=== PATIENT | female | born 2000 | race Caucasian/White ===

== ENCOUNTER 2019-08-22 02:23 | Inpatient (IN) ==
[~2019-08-22 02:23] MED LIST: Famotidine 20 MG/2 ML VIAL IVP PRN; Lidocaine 1% 20 ML MDV INFILT PRN; Metoclopramide 10 MG/2 ML VIAL IVP PRN; Naloxone 0.4 MG/ML INJ IVP PRN; Ondansetron 4 MG/2 ML VIAL IVP PRN; Ringers Solution, Lactated 1,000 ML IVC SCH
[2019-08-22 02:33] LABS: Basophils % 0.2 %; Eosinophils # 0.2 K/mcL (0.0-0.6); Eosinophils % 1.3 %; Hematocrit 36.7 % (35.3-44.9); Hemoglobin 12.5 g/dL (11.5-15.4); Immature Granulocytes % 1.1 % (0-4); Lymphocytes % 11.9 %; Mean Corpuscular HGB Conc 34.1 g/dL (31.6-35.5); Mean Corpuscular Hemoglobin 30.1 pg (28.0-33.3); Mean Corpuscular Volume 88.4 fL (83.0-100.0); Mean Platelet Volume 9.9 fL (9.4-12.4); Monocytes # 1.3 K/mcL (0.0-1.3); Monocytes % 7.4 %; Neutrophils # 13.4 K/mcL (1.6-8.9); Platelet Count 264 K/mcL (140-400); Red Blood Count 4.15 M/mcL (3.82-4.97); Red Cell Distribution Width 16.4 % (11.5-14.5); Segmented Neutrophils % 78.1 %; White Blood Count 17.1 K/mcL (4.3-11.1)
[2019-08-22] MEDS ORDERED: *HR* FentaNYL (PF) 100 MCG/2 ML VIAL EP ONE (02:36)
[2019-08-22] MEDS ORDERED: Ropivacaine/PF 0.2% 20 ML VIAL EP ONE (02:36)
[2019-08-22] MEDS ORDERED: EPHEDrine 50 MG/ML VIAL IVP PRN (02:36)
[2019-08-22] MEDS ORDERED: *HR* FentaNYL (PF) 100 MCG/2 ML VIAL ONE (02:40)
[2019-08-22] MEDS ORDERED: Ropivacaine/PF 0.2% 20 ML VIAL ONE (02:40)
[2019-08-22 02:43] LABS: Amphetamine Screen,Urine Negative ng/mL (Cutoff=1000); Barbiturate Screen,Urine Negative ng/mL (Cutoff=200); Benzodiazepines Screen,Urine Negative ng/mL (Cutoff=200); Cannabinoid Screen,Urine Negative ng/mL (Cutoff = 50); Cocaine Screen,Urine Negative ng/mL (Cutoff= 300); Opiate Screen,Urine Negative ng/mL (Cutoff=300); Phencyclidine Screen,Urine Negative ng/mL (Cutoff=25)
[2019-08-22] MEDS: Epidural Premix (fent/bupiv) 110 ML EP SCH ×2 (03:03→10:04)
[2019-08-22] MEDS ORDERED: Oxytocin 20 units/ LR 1000 mL 20 UNIT/1,000 ML BAG IVC SCH ×2 (08:30→16:34)
[2019-08-22] MEDS ORDERED: Rho Immune Globulin 1,500 UNIT SYRINGE IM PRN (16:34)
[2019-08-22] MEDS ORDERED: Sennosides 8.6 MG TABLET PO PRN (16:34)
[2019-08-22] MEDS ORDERED: Lanolin 7 G OINT...G. TP PRN (16:34)
[2019-08-22] MEDS ORDERED: Acetaminophen 325 MG TABLET PO PRN (16:34)
[2019-08-22] MEDS ORDERED: Benzocaine/Menthol 56 GM AEROSOL SPRAY TP PRN (16:34)
[2019-08-22] MEDS: Ibuprofen 600 MG TABLET PO PRN (21:09)
[2019-08-23 06:40] LABS: Basophils % 0.2 %; Eosinophils # 0.2 K/mcL (0.0-0.6); Eosinophils % 1.6 %; Hematocrit 32.7 % (35.3-44.9); Immature Granulocytes % 0.8 % (0-4); Lymphocytes # 1.7 K/mcL (0.6-4.6); Lymphocytes % 11.4 %; Mean Corpuscular HGB Conc 33.3 g/dL (31.6-35.5); Mean Corpuscular Hemoglobin 29.9 pg (28.0-33.3); Mean Corpuscular Volume 89.6 fL (83.0-100.0); Monocytes # 1.1 K/mcL (0.0-1.3); Monocytes % 7.4 %; Neutrophils # 11.4 K/mcL (1.6-8.9); Platelet Count 209 K/mcL (140-400); Red Blood Count 3.65 M/mcL (3.82-4.97); Red Cell Distribution Width 16.5 % (11.5-14.5); Segmented Neutrophils % 78.6 %; White Blood Count 14.5 K/mcL (4.3-11.1)
[2019-08-23 06:41] LABS: Hemoglobin 10.9 g/dL (11.5-15.4)
[2019-08-23 07:59] VITALS: BP 102/58
[2019-08-23] MEDS ORDERED: Prenatal Vit/FA 1 EACH TABLET PO SCH (09:00)
[2019-08-23] MEDS: Ibuprofen 600 MG TABLET PO PRN (09:12)
[2019-08-23] MEDS ORDERED: Lidocaine/EPI 1:100k 1% 30 ML VIAL INFILT ONE (09:28)
[2019-08-23] MEDS ORDERED: Etonogestrel 68 MG IMPLANT IL ONE (09:28)
== END 2019-08-23 15:45 | disposition home or self-care (01) | DRG 807 ==
LOC: 1NENULAB → 1NENUOBS 15:58
PROVIDERS: ADMIT Obstetrics & Gynecology; ATTEND Obstetrics & Gynecology